=== PATIENT | male | born 1975 | race Caucasian/White ===

== ENCOUNTER → 2018-01-09 07:57 | Outpatient (CLI) | payer OTHER, SELFPAY ==
--- NOTE | 2018-01-09 08:01 | US_ITS ---
US gallbladder HISTORY: ITS.REASON: RUQ PAIN ORDERING PHYSICIAN: Osito Camarillo MD PATIENT AGE: 42 years Comparison: None FINDINGS: PANCREAS: Unremarkable. No obvious mass or abnormal fluid collection. No ductal dilatation LIVER: No focal liver lesions demonstrated. Homogeneous echogenicity. No intrahepatic biliary ductal dilatation evident. There is increased echogenicity of the liver suggesting fatty liver RIGHT KIDNEY: Unremarkable. Normal size and echogenicity. No hydronephrosis GALLBLADDER: No gallstones, gallbladder wall thickening, pericholecystic fluid, or biliary dilatation. Scattered echoes are present in the gallbladder may be due to small amount sludge or concentrated bile IMPRESSION: No gallstones, gallbladder wall thickening biliary dilatation or pericholecystic fluid Small amount sludge versus concentrated bile of questioned clinical significance Fatty liver
== END ==
PROVIDERS: PCP Family Medicine; Visit Provider Family Medicine
DX: R10.11 Right upper quadrant pain (principal)
CPT/HCPCS: 76705

== ENCOUNTER → 2018-02-10 07:51 | Outpatient (CLI) | payer OTHER, SELFPAY ==
[2018-02-10 08:23] LABS: Basophils % 0.9 % (0.1-2.0); Eosinophils # 0.1 K/mm3 (0.0-0.4); Hematocrit 45.7 % (42.0-52.0); Lymphocytes # 1.8 K/mm3 (0.7-4.5); Lymphocytes % 35.6 % (10-50); Mean Corpuscular HGB Conc 34.9 g/dL (31.8-35.4); Mean Corpuscular Hemoglobin 32.4 pg (27.0-31.2); Mean Corpuscular Volume 92.6 fl (80-94); Mean Platelet Volume 7.2 fl (7.4-10.4); Monocytes # 0.4 K/mm3 (0.1-1.0); Monocytes % 7.6 % (1.7-9.3); Neutrophils # 2.7 K/mm3 (1.8-7.8); Neutrophils % 53.9 % (37.0-80.0); Platelet Count 275 K/mm3 (142-424); Red Blood Count 4.94 M/mm3 (4.60-6.20); Red Cell Distribution Width 12.7 % (11.5-17.5); White Blood Count 5.1 K/mm3 (4.8-10.8)
[2018-02-10 08:51] LABS: Alanine Aminotransferase 51 U/L (12-78); Albumin/Globulin Ratio 1.3 (1.1-1.8); Alkaline Phosphatase 58 U/L (46-116); Aspartate Amino Transferase 23 U/L (15-37); Bilirubin,Total 0.6 mg/dL (0.2-1.0); Blood Urea Nitrogen 16 mg/dL (7-18); Calcium 9.3 mg/dL (8.5-10.1); Carbon Dioxide 29 mmol/L (21.0-32.0); Chloride 103 mmol/L (98-107); Chol/HDL Ratio 3.4 (1-3.5); Cholesterol 211 mg/dL (140-200); Creatinine,Serum 1.16 mg/dL (0.70-1.30); Estimated Glomerular Filt Rate 69 ml/min (>60); GFR (African American) 84 ML/MIN (>60); Globulin 3.2 gm/dl (1.3-3.2); Glucose 112 mg/dL (74-106); HDL Cholesterol 62 mg/dL (27-67); LDL Cholesterol 121 mg/dL (0-130); Sodium 140 mmol/L (136-145); Total Protein,Serum 7.2 gm/dL (6.4-8.2); Triglycerides 139 mg/dL (30-200); VLDL Cholesterol 28 mg/dL (0-40)
== END ==
PROVIDERS: Visit Provider Family Medicine
DX: R03.0 Elevated blood-pressure reading, without diagnosis of hypertension (principal)
CPT/HCPCS: 36415; 80053; 80061; 85025

== ENCOUNTER → 2019-03-10 10:02 | Outpatient (POV) | payer OTHER, SELFPAY | PROVIDERS: Visit Provider Dermatology | DX: Z00.00 Encounter for general adult medical examination without abnormal findings (principal) ==

== ENCOUNTER → 2019-08-26 15:18 | Outpatient (CLI) | payer OTHER, SELFPAY ==
[2019-08-28 15:15] LABS: Covid-19 Nasal PCR Sendout Lex NOT DETECTED
== END ==
PROVIDERS: PCP Family Medicine; Visit Provider Nurse Practitioner Family
DX: Z03.818 Encounter for observation for suspected exposure to other biological agents ruled out (principal)
CPT/HCPCS: U0004

== ENCOUNTER → 2019-12-08 16:47 | Outpatient (CLI) | payer OTHER, SELFPAY ==
[2019-12-08 18:36] LABS: Chloride 98 mmol/L (98-107); Potassium 4.3 mmoL/L (3.5-5.1); Sodium 137 mmol/L (136-145)
[2019-12-08 18:38] LABS: Alanine Aminotransferase 134 U/L (12-78); Alkaline Phosphatase 57 U/L (38-126); Anion Gap 13.3 mEq/L (5-15); Aspartate Amino Transferase 99 U/L (17-59); Bilirubin,Total 1.2 mg/dl (0.2-1.3); Blood Urea Nitrogen 23 mg/dl (9-20); Carbon Dioxide 30 mmol/L (22.0-30.0); Estimated Glomerular Filt Rate 51 ml/min (>60); GFR (African American) 62 ML/MIN (>60)
[2019-12-08 18:39] LABS: Albumin Level 4.7 g/dl (3.5-5.0); Albumin/Globulin Ratio 1.7 (1.1-1.8); Calcium 9.9 mg/dl (8.4-10.2); Globulin 2.8 g/dL (1.3-3.2); Glucose 97 mg/dl (74-100); Total Protein,Serum 7.5 g/dl (6.3-8.2)
[2019-12-10 10:26] LABS: Hep A Ab, IgM Negative (Negative); Hepatitis B Core Antibody IgM Negative (Negative); Hepatitis B Surface Antigen Negative (Negative)
[2019-12-10 10:27] LABS: Hepatitis C Antibody <0.1 s/co ratio (0.0-0.9)
== END ==
PROVIDERS: Visit Provider Nurse Practitioner Family
DX: R74.8 Abnormal levels of other serum enzymes (principal); I10 Essential (primary) hypertension
CPT/HCPCS: 36415; 80053; 80074

== ENCOUNTER 2020-06-15 08:30 | Day surgery (SDC) | payer OTHER, SELFPAY ==
[2020-06-15 08:55] VITALS: BP 119/68; PULSE 62; RESP 18; O2SAT 98; BMI 27.1
[2020-06-15 09:01] VITALS: BP 116/83; PULSE 65; RESP 18; O2SAT 98
[2020-06-15 09:07] VITALS: BP 117/85; PULSE 72; RESP 18; O2SAT 98
--- NOTE | 2020-06-15 09:18 | P.PCN_ITS ---
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 He does not have significant pain however he does have some neurological changes with loss of dorsiflexion of his foot. He did have a previous herniated disc at L5-S1 several years ago. He did lose dorsiflexion at that time. He was scheduled for an injection however with physical therapy he did get better. This time he lost dorsiflexion approximately 6 months ago again. He has not gotten any better with physical therapy. We will do a right transforaminal epidural steroid injection at L4-5 and L5-S1 to see if this helps with his symptoms. We will also obtain a new MRI and have him evaluated by Dr. Ramos for neurosurgical evaluation. Procedure Details:: Right transforaminal epidural steroid injection at L4-5 and L5-S1 under fluoroscopy Informed consent was obtained risk and benefits of the procedure were explained the patient. Patient was taken the procedure room. The back was prepped using ChloraPrep. A 22-gauge spinal needle was inserted into the intervertebral foramen of L4-5 and L5-S1. Needle placement was confirmed with dye. After this we injected 5 mL bupivacaine 0.25% and Depo-Medrol 20 mg into each transforaminal epidural space of L4-5 and L5-S1. We used a total of 40 mg Depo- Medrol for both levels on the right side. Patient tolerated the procedure well with no complications. Plan and Disposition:: We will order a new lumbar MRI since he does have new neurological changes which have occurred over the last few months. We will also schedule a neurosurgical evaluation with Dr. Ramos. We will follow-up with him in 2 weeks.
[2020-06-15 11:08] VITALS: BP 115/78; PULSE 68; RESP 18; O2SAT 99
== END 2020-06-15 09:41 | disposition home or self-care (01) ==
LOC: SC.PAINP 08:30
PROVIDERS: PCP Family Medicine; Visit Provider Anesthesiology
DX: M51.16 Intervertebral disc disorders with radiculopathy, lumbar region (principal); I10 Essential (primary) hypertension; J45.909 Unspecified asthma, uncomplicated; Z79.899 Other long term (current) drug therapy; Z88.2 Allergy status to sulfonamides
CPT/HCPCS: 64483; 64484; J1040; Q9966

== ENCOUNTER → 2020-06-15 09:29 | Outpatient (POV) | payer OTHER, SELFPAY ==
--- NOTE | 2020-06-16 16:37 | [facility].PAINSOAP ---
[facility] Pain Management SOAP Note Subjective:: Patient is a pleasant 44-year-old white male who presents today for discussion in regard to his right leg issues patient had a herniated disc 10 years ago at the L5-S1 level. Patient did physical therapy and this resolved. Recently he has had a loss of dorsiflexion on the right side along with loss of muscle mass. Patient has been having pain however he is having issues with balance. He does not have a new MRI at this time. We discussed a transforaminal injection. If he does not get relief from this we would move forward with an MRI and a neurosurgical consultation. ROS General: no recent weight change, no fever, no sleep disturbances Respiratory: no cough, no shortness of air, no recurring pulmonary infections Cardiovascular/Peripheral Vascular: No chest pain, No palpitations, no edema, no shortness of breath. Gastrointestinal: no new onset incontinence, normal bowel movements reported Genitourinary: no new onset incontinence Musculoskeletal: Right lower extremity weakness Psychiatric: normal mood/ affect Neurological: [denies new onset weakness in extremities], [denies new onset balance issues] Objective:: Physical Exam General: Alert and oriented x3, no acute distress, pleasant and cooperative, [on room air] Lungs: Resps E/U, Symmetrical chest expansion, Eyes: PERRL Musculoskeletal: deep tendon reflexes normal, strength in upper and lower extremities [5/5], [slightly antalgic gait] Neurological: speech clear, folder hand equal, no gross sensory deficits Assessment:: Degenerative disc disease, history disc herniation, right-sided lower extremity weakness Plan:: We will set him up for L4-L5 L5-S1 right transforaminal epidural steroid injection. If he does not get any relief we will move forward with an MRI and neurosurgical consultation. He has been instructed to call the office if he has any issues prior to his next appointment. [facility] History I have reviewed the patient's past medical history: Yes Medical History: Reports:: Hypertension Denies:: Cancer, Diabetes Mellitus Type 1, Diabetes Mellitus Type 2, MRSA, Seizures *Have you ever received a pneumonia vaccine?: No *Have you received a flu vaccine this season?: No Amputation: No Fractures: No - *Social History Smoking Status: Never smoker Alcohol Intake: never *Occupational Status:: employed Housing: house Household Members: spouse *Travel in the last 8 weeks: None Family Hx:: Unable to obtain
== END ==
PROVIDERS: Visit Provider Clinical Nurse Specialist Family Health
DX: M51.36 Other intervertebral disc degeneration, lumbar region (principal); Z87.39 Personal history of other diseases of the musculoskeletal system and connective tissue; R53.1 Weakness

== ENCOUNTER → 2020-06-22 07:47 | Outpatient (CLI) | payer OTHER, SELFPAY ==
--- NOTE | 2020-06-22 07:50 | MR_ITS ---
PROCEDURE: MR LUMBAR SPINE WO CON CLINICAL INDICATION: BACK PAIN Herniated L5-s1 x12yrs ago. Weakness in rt leg [id number] ago. Numbness on lateral aspect of rt foot xyrs. COMPARISON: No exams were available for comparison TECHNIQUE: Standard multiplanar multiecho sequences are performed without contrast. 3-D MIP and myelographic images are also rendered and reviewed FINDINGS: Normal alignment. The spinal cord ends at the L1 level. T12-L1: Unremarkable. L1-L2: Unremarkable. L2-L3: Minimal bulging disc with mild facet and ligamentum hypertrophy and mild bilateral foraminal narrowing. L3-L4: Mild bulging disc slightly eccentric toward the right abutting the anterior aspect of the right L4 nerve root without displacement with mild bilateral foraminal narrowing right greater than left. L4-5: Bulging disc with a small broad-based central left paracentral disc protrusion with an annular fissure. This abuts the anterior aspect of the left L5 nerve root. There is facet and ligamentum hypertrophy. There is bilateral lateral recess narrowing left greater than right with moderate to severe left-sided foraminal narrowing and moderate right foraminal narrowing L5-S1: Bulging disc with a broad-based central and right paracentral disc protrusion causing canal stenosis and bilateral lateral recess narrowing right greater than left.. The disc is impinging upon the right S1 nerve root with severe right foraminal narrowing and moderate left foraminal narrowing. There is an annular fissure at this region. IMPRESSION: 1. L3-L4: Mild bulging disc slightly eccentric toward the right abutting the anterior aspect of the right L4 nerve root without displacement with mild bilateral foraminal narrowing right greater than left. 2. L4-5: Bulging disc with a small broad-based central left paracentral disc protrusion with an annular fissure. This abuts the anterior aspect of the left L5 nerve root. There is facet and ligamentum hypertrophy. There is bilateral lateral recess narrowing left greater than right with moderate to severe left-sided foraminal narrowing and moderate right foraminal narrowing 3. L5-S1: Bulging disc with a broad-based central and right paracentral disc protrusion causing canal stenosis and bilateral lateral recess narrowing right greater than left.. The disc is impinging upon the right S1 nerve root with severe right foraminal narrowing and moderate left foraminal narrowing. There is an annular fissure at this region. Dictated by: Jayesh Haq MD 06/23/2020 12:34 Jayesh Haq MD in [place] 06/23/2020 12:34
== END ==
PROVIDERS: PCP Family Medicine; Visit Provider Anesthesiology
DX: M54.5 Low back pain (principal)
CPT/HCPCS: 72148; 76376

== ENCOUNTER → 2020-11-16 08:10 | Outpatient (CLI) | payer OTHER, SELFPAY ==
[2020-11-16 09:01] LABS: Alanine Aminotransferase 111 U/L (12-78); Albumin Level 4.2 g/dl (3.5-5.0); Albumin/Globulin Ratio 1.6 (1.1-1.8); Alkaline Phosphatase 53 U/L (38-126); Anion Gap 12.4 mEq/L (5-15); Aspartate Amino Transferase 67 U/L (17-59); Bilirubin,Total 1.1 mg/dl (0.2-1.3); Blood Urea Nitrogen 22 mg/dl (9-20); Calcium 9.4 mg/dl (8.4-10.2); Carbon Dioxide 29 mmol/L (22.0-30.0); Chloride 103 mmol/L (98-107); Chol/HDL Ratio 5.1 (1-3.5); Cholesterol 226 mg/dl (140-200); Estimated Glomerular Filt Rate 65 ml/min (>60); GFR (African American) 79 ML/MIN (>60); Globulin 2.6 g/dL (1.3-3.2); Glucose 113 mg/dl (74-100); HDL Cholesterol 44 mg/dl (40-60); Potassium 4.4 mmoL/L (3.5-5.1); Sodium 140 mmol/L (136-145); Total Protein,Serum 6.8 g/dl (6.3-8.2); Triglycerides 285 mg/dl (30-150); VLDL Cholesterol 57 mg/dL (0-40)
== END ==
PROVIDERS: Visit Provider Nurse Practitioner Family
DX: Z00.00 Encounter for general adult medical examination without abnormal findings (principal); I10 Essential (primary) hypertension
CPT/HCPCS: 36415; 80053; 80061

== ENCOUNTER → 2021-01-19 08:40 | Outpatient (CLI) | payer OTHER, SELFPAY ==
--- NOTE | 2021-01-19 08:43 | XR_ITS ---
PROCEDURE: XR TIBIA FIBULA RT 2V CLINICAL INDICATION: RT LEG PAIN COMPARISON: No exams were available for comparison FINDINGS: No fracture or dislocation. No lytic or blastic change. There is normal mineralization. There are mild degenerative changes of the ankle with bony hypertrophy of the distal tibia and at the talar Other findings:None. IMPRESSION: No acute finding. Mild degenerative changes of the ankle Dictated by: Jayesh Haq MD 01/19/2021 16:13 Jayesh Haq MD in [facility] 01/19/2021 16:13
== END ==
PROVIDERS: PCP Family Medicine; Visit Provider Nurse Practitioner Family
DX: M79.604 Pain in right leg (principal)
CPT/HCPCS: 73590